=== PATIENT | male | born 1930 | race Caucasian/White ===

== ENCOUNTER 2019-06-13 13:31 | Observation (INO) | payer BC, MEDICARE, OTHER ==
[2019-06-13 14:18] LABS: ABS Basophils 0.1 10^3/ul (0-0.2); ABS Neutrophils 7.3 10^3/ul (1.5-7.7); Eosinophil % 0.4 %; Hematocrit 41 % (42-52); Hemoglobin 13.9 g/dL (14.0-18.0); Mean Corpuscular HGB Conc 34 g/dL (31-36); Mean Corpuscular Hemoglobin 32 pg (27-31); Mean Corpuscular Volume 93 fL (80-94); Mean Platelet Volume 8.5 fL (7.4-10.4); Platelet Count 125 10^3/uL (150-450); Red Blood Count 4.41 10^6 /uL (4.18-5.48); Red Cell Distribution Width 14 % (10-15); White Blood Count 9.4 10^3/uL (3.5-10.8)
[2019-06-13 14:24] LABS: INR 1.03 (0.82-1.09)
[2019-06-13 14:41] LABS: Troponin I 0.01 ng/mL (<0.04)
[2019-06-13 14:42] LABS: Albumin 3.7 g/dL (3.2-5.2); Albumin/Globulin Ratio 1.4 (1-3); Calcium 8.9 mg/dL (8.6-10.3); EGFR African American 67.8 (>60); EGFR Non-African American 56.1 (>60); Globulin 2.7 g/dL (2-4); Potassium 3.8 mmol/L (3.5-5.0); Total Bilirubin 0.8 mg/dL (0.2-1.0); Total Protein 6.4 g/dL (6.4-8.9)
--- NOTE | 2019-06-13 14:46 | ED ---
Syncope/Near Syncope - HPI Summary HPI Summary: Pt is an 88 y/o M presenting to the ED with a chief complaint of syncope. He states he was grocery shopping with his when he felt lightheaded, and he experienced a syncopal episode. His family members report him being pale and clammy, and they also note that EMS reported a couple more near-syncopal episodes. He denies CP or abd pain. Patient reports similar episode when he was admitted to hospital and had workup and was told he was dehydrated. No fevers or chills. Patient unsure if he hit his head but denies headaches. Patient states he feels better now. 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 His keeps track of his medical issues and has documents regardng PMH. Per ROR hx NSTEMI with ST depression in v2-v5. Underwent LHC on 02/01 showing 3VCADpLAD diag and RCA. Underwent successful PCI of proximal RCA with drug eluting stent with Dr. Tye Rose on 02/02. - History Of Current Complaint Chief Complaint: EDSyncope Time Seen by Provider: 06/13/19 13:39 Hx Obtained From: Patient Onset/Duration: Sudden Onset, Lasting Minutes, Resolved Timing: Minutes Context: Witnessed, Loss Of Consciousness Activity At Onset: Exertion - walking in grocery store Associated Head Trauma: No Aggravating Factor(s): Nothing Alleviating Factor(s): Spontaneous Resolution Associated Signs And Symptoms: Lightheadedness - Allergies/Home Medications Allergies/Adverse Reactions: Allergies Allergy/AdvReac Type Severity Reaction Status Date / Time codeine Allergy Unknown Verified 06/13/19 14:11 Reaction Details Penicillins Allergy Unknown Verified 06/13/19 14:11 Reaction Details procaine [From Novocain] Allergy Unknown Verified 06/13/19 14:11 Reaction Details Home Medications: Home Medications Aspirin EC TAB* [Ecotrin EC Low Dose 81 MG*] 81 mg PO DAILY 06/13/19 [History Confirmed 06/13/19] Calcipotriene/Betamethasone [Enstilar 0.005%-0.064% Foam] 60 gm TOPICAL DAILY [History Confirmed 06/13/19] Cholecalciferol TAB* [Vitamin D TAB*] 2,000 units PO DAILY 06/13/19 [History Confirmed 06/13/19] Clopidogrel TAB* [Plavix TAB*] 75 mg PO DAILY 06/13/19 [History Confirmed ] Dimethicone/Colloidal Oatmeal [Aveeno Skin Relief Moistu] 1.3 % TOPICAL DAILY PRN 06/13/19 [History Confirmed 06/13/19] Emollient Combination No.75 [[place] Butter] 1 cre TOPICAL DAILY PRN 06/13/19 [ History Confirmed 06/13/19] Ibuprofen TAB* [Advil TAB*] 400 mg PO BID PRN 06/13/19 [History Confirmed ] Irbesartan/Hctz 300-12.5 1 tab PO DAILY 06/13/19 [History Confirmed 06/13/19] Multivitamins/Minerals TAB* [Theragran/minerals TAB*] 1 tab PO DAILY 06/13/19 [ History Confirmed 06/13/19] Rosuvastatin (NF) [Crestor] 20 mg PO DAILY 06/13/19 [History Confirmed 06/13/19] Triamcinolone 0.1% CREAM(NF) [Kenalog Cream 0.1%(NF)] 1 applic TOPICAL BID 06/13 [History Confirmed 06/13/19] amLODIPine TAB* [Norvasc 5 mg TAB*] 5 mg PO DAILY 06/13/19 [History Confirmed ] PMH/Surg Hx/FS Hx/Imm Hx Endocrine/Hematology History: Reports: Hx Anticoagulant Therapy - plavix Cardiovascular History: Reports: Hx Aneurysm, Hx Myocardial Infarction Sensory History: Reports: Hx Contacts or Glasses Infectious Disease History: No Infectious Disease History: Denies: Traveled Outside the [place] in Last 30 Days - Family History Known Family History: Negative: Renal Disease - Social History Alcohol Use: None Hx Substance Use: No Substance Use Type: Reports: None Hx Tobacco Use: Yes Smoking Status (MU): Former Smoker Review of Systems Positive: Other - pale, clammy Negative: Chest Pain Negative: Abdominal Pain Neurological: Other - lightheadedness Positive: Syncope All Other Systems Reviewed And Are Negative: Yes Physical Exam - Summary Physical Exam Summary: Constitutional: Elderly male no acute distress Skin: Warm, Dry HENT: Normocephalic; Atraumatic Eyes: Conjunctiva normal Neck: Musculoskeletal ROM normal neck. (-) JVD, (-) Stridor Cardio: Rhythm regular, rate normal, Heart sounds normal; Intact distal pulses; Radial pulses are 2+ and symmetric. (-) Murmur. Diminished pulses in bilateral feet (chronic per ROR) Pulmonary/Chest wall: Effort normal. (-) Respiratory distress, (-) Wheezes, (-) Rales Abd: Soft, (-) tenderness, (-) Distension, (-) Guarding, (-) Rebound Musculoskeletal: (-) Edema Lymph: (-) Cervical adenopathy Neuro: Alert, Oriented x3 Psych: Mood and affect Normal Triage Information Reviewed: Yes Vital Signs On Initial Exam: Initial Vitals BP 125/84 06/13/19 13:37 Vital Signs Reviewed: Yes - [place] Coma Scale Best Eye Response: 4 - Spontaneous Best Motor Response: 6 - Obeys Commands Best Verbal Response: 5 - Oriented Coma Scale Total: 15 Diagnostics - Vital Signs Vital Signs Temp Pulse Resp BP Pulse Ox 06/13/19 13:40 98.3 F 66 13 125/84 98 06/13/19 13:37 125/84 - Laboratory Lab Results: Lab Results 06/13/19 06/13/19 06/13/19 Range/Units 14:04 14:04 14:04 WBC 9.4 (3.5-10.8) 10^3/uL RBC 4.41 (4.18-5.48) 10^6 /uL Hgb 13.9 L (14.0-18.0) g/dL Hct 41 L (42-52) % MCV 93 (80-94) fL MCH 32 H (27-31) pg MCHC 34 (31-36) g/dL RDW 14 (10-15) % Plt Count 125 L (150-450) 10^3/uL MPV 8.5 (7.4-10.4) fL Neut % (Auto) 77.3 % Lymph % (Auto) 11.0 % [place] % (Auto) 10.7 % Eos % (Auto) 0.4 % Baso % (Auto) 0.6 % Absolute Neuts (auto) 7.3 (1.5-7.7) 10^3/ul Absolute Lymphs (auto) 1.0 (1.0-4.8) 10^3/ul Absolute Monos (auto) 1.0 H (0-0.8) 10^3/ul Absolute Eos (auto) 0.0 (0-0.6) 10^3/ul Absolute Basos (auto) 0.1 (0-0.2) 10^3/ul Absolute Nucleated RBC 0.0 10^3/ul Nucleated RBC % 0.0 INR (Anticoag Therapy) 1.03 (0.82-1.09) Sodium 140 (135-145) mmol/L Potassium 3.8 (3.5-5.0) mmol/L Chloride 106 (101-111) mmol/L Carbon Dioxide 27 (22-32) mmol/L Anion Gap 7 (2-11) mmol/L BUN 33 H (6-24) mg/dL Creatinine 1.22 H (0.67-1.17) mg/dL Est GFR ( Amer) 67.8 (>60) Est GFR (Non-Af Amer) 56.1 (>60) BUN/Creatinine Ratio 27.0 H (8-20) Glucose 99 (70-100) mg/dL Calcium 8.9 (8.6-10.3) mg/dL Magnesium 2.0 (1.9-2.7) mg/dL Total Bilirubin 0.80 (0.2-1.0) mg/dL AST 22 (13-39) U/L ALT 13 (7-52) U/L Alkaline Phosphatase 118 H (34-104) U/L Troponin I 0.01 (<0.04) ng/mL Total Protein 6.4 (6.4-8.9) g/dL Albumin 3.7 (3.2-5.2) g/dL Globulin 2.7 (2-4) g/dL Albumin/Globulin Ratio 1.4 (1-3) Result Diagrams: 06/13/19 14:04 06/13/19 14:04 Lab Statement: Any lab studies that have been ordered have been reviewed, and results considered in the medical decision making process. - Radiology CXR Radiology Interpretation Completed By: Radiologist Summary of Radiographic Findings: No active cardiopulmonary disease is noted. ED physician has reviewed this report. - CT Brain ct CT Interpretation Completed By: Radiologist Summary of CT Findings: 1. NO EVIDENCE FOR ACUTE INTRACRANIAL ABNORMALITY. 2. ATROPHY AND FINDINGS CONSISTENT WITH CHRONIC SMALL VESSEL ISCHEMIC CHANGES. ED physician has reviewed this report. - EKG 1357 Cardiac Rate: NL - 64bpm EKG Rhythm: Sinus Rhythm ST Segment: Non-Specific Ectopy: None Summary of EKG Findings: An EKG at 1357 shows NSR at 64bpm with mild ST depression in v4, v5, and v6, and nml axis, nml intervals. No STEMI. No acute changes. No prior to compare. Re-Evaluation - Re-Evaluation First Eval Comment: head CT neg, labs notable for Cr 1.2, given IVF. Plan for obs admit to medicine Course/Dx Course Of Treatment: 80-year-old male with a complex medical history including aortic aneurysm status post TEVAR, hypertension who presents with multiple syncopal episodes. Syncope. DDx: Seizure: no witnessed seizure activity, incontinence or h/o seizures to suggest seizure today. Hypoxia and hypoglycemia less likely in this patient with normal sats and BG. Cardiac issue : electrical (dysarrhythmias, brugada, WPW, long QT). Patient has extensive medical history. Check EKG and troponin. Reportedly has multiple echoes at outside hospital however unable to access. Mechanical: outflow obstruction like HOCM or aortic stenosis, tamponade-less likely as no murmur, non-exertional , no hypertrophy on EKG. Vessels: Patient has known history of a previous aortic aneurysm, status post repair. Abdomen is soft no pulsatile masses. Chest x-ray does not show any widening of mediastinum. Vital signs are stable. Volume issue: Patients thinks he is dehydrated so will provide IV fluids , no obvious fluid loss by history. Neuro: No NIÑO, no personal or family h/o cerebral aneurysm, nml neuro exam, however patient is on Plavix so we will check head CT. Also: vasovagal, drugs/meds, autonomic insufficiency - Diagnoses Provider Diagnoses: Syncope Discharge - Sign-Out/Discharge Documenting (check all that apply): Patient Departure - Discharge Plan Condition: Stable Disposition: ADMITTED TO [facility] Referrals: No Primary Care Phys,NOPCP [Primary Care Provider] - - Billing Disposition and Condition Condition: STABLE Disposition: Admitted to [facility] - Attestation Statements Document Initiated by Scribe: Yes Documenting Scribe: Amanda Chau Provider For Whom Scribe is Documenting (Include Credential): Mana Hennessy MD. Scribe Attestation: Amanda Arguello, scribed for Mana Hennessy MD. on 06/13/19 at 1645. Scribe Documentation Reviewed: Yes Provider Attestation: The documentation as recorded by the scribe, Amanda Chau accurately reflects the service I personally performed and the decisions made by me, Mana Hennessy MD. Status of Scribe Document: Viewed Consult Consult: [id number] - I spoke with Dr. Corona who accepts the pt for admission to [facility].
[2019-06-13 15:42] LABS: Urine Appearance Clear; Urine Bilirubin Negative (Negative); Urine Blood Negative (Negative); Urine Color Yellow; Urine Glucose Negative (Negative); Urine Ketones Negative (Negative); Urine Nitrite Negative (Negative); Urine Protein Negative (Negative); Urine Specific Gravity 1.015 (1.010-1.030); Urine Urobilinogen Negative (Negative)
[2019-06-13] MEDS ORDERED: Iodixanol* (CONTRAST) 320 MG/ML 100 ML SDV IV ONE (19:33)
[2019-06-13] MEDS ORDERED: Acetaminophen TAB* 325 MG PO PRN (21:53)
[2019-06-13] MEDS ORDERED: hydrALAZINE IV* 20 MG/ML VIAL IV SLOW PU PRN (21:57)
[2019-06-13] MEDS ORDERED: NS 0.9% 1000 ML** 1,000 ML IV SCH (22:00)
--- NOTE | 2019-06-14 04:53 | HP ---
HISTORY AND PHYSICAL: DATE OF ADMISSION: 06/13/19 PROVIDER: Rowena Luna NP PRIMARY CARE PROVIDER: [place]. ATTENDING PHYSICIAN WHILE IN THE HOSPITAL: Dr. Skylar Fields * (dictated by Rowena Luna NP). CHIEF COMPLAINT: Syncope. HISTORY OF PRESENT ILLNESS: Mr. La is an 88-year-old gentleman with a past medical history significant for prostate cancer, hypertension, Peyronie's disease, history of non-STEMI, history of aortic aneurysm with repair, left carotid to left subclavian bypass surgery, who reports that he is here visiting from [place] and arrived last Tuesday. The patient reports at approximately 11 a.m. this morning he was shopping with his in a dress shop; he felt woozy and then somebody in the dress shop went to get him a chair, but before they could return, the patient had collapsed to the floor. EMS was called and the patient was brought to the emergency room for further evaluation. The patient reports that today he was climbing up and down stairs and he did not have any symptoms. He denied any chest pain or shortness of breath. Only reports feeling woozy, lightheaded. Reports he remembers feeling woozy and falling to the floor but did not recall some of the events after the fall. He reports that he was feeling in his normal state of health. He again experienced no symptoms during his drive or has had any recent illnesses. Due to syncopal episode, we are asked to see and evaluate him for admission. PAST MEDICAL HISTORY: Significant for: 1. Hypertension. 2. Peyronie's disease. 3. History of non-STEMI. 4. History of prostate cancer, status post prostatectomy. 5. History of aortic aneurysm, status post repair. 6. History of left carotid to left subclavian bypass surgery. PAST SURGICAL HISTORY: 1. Tonsillectomy. 2. Prostatectomy. 3. TEVAR bypass graft of the aorta. 4. Cardiac stent. 5. Left carotid to left subclavian bypass. HOME MEDICATIONS: Include: 1. Irbesartan/hydrochlorothiazide 300/12.5. 2. Clopidogrel 75 mg p.o. daily. 3. Rosuvastatin 20 mg p.o. daily. 4. Multivitamin 1 p.o. daily. 5. Vitamin D 2000 units p.o. daily. 6. Amlodipine 5 mg p.o. daily. 7. Aspirin 81 mg p.o. daily. FAMILY HISTORY: Mother of old age at the age of 103. Father at 87, again of old age. No diabetes or cancer within the family. SOCIAL HISTORY: The patient is a former smoker. He quit smoking 50 years ago. He denies any alcohol or illicit drug use. He is . He lives with his . Surrogate decision maker in the event he is unable to make his own decisions is his . He does walk with a cane at times. He is a full code. REVIEW OF SYSTEMS: He denies any fever, unintended weight loss, chest pain or edema. Denies any cough, hemoptysis, or shortness of breath. No nausea, vomiting, diarrhea, or abdominal pain, hematuria, or dysuria, focal weakness or sensory loss. Denies any visual complaints, dysphagia, arthralgias, myalgias, rashes, lesions, or open sores, psychosis or anxiety. The patient did report that he had an episode of feeling lightheaded and syncope. PHYSICAL EXAMINATION GENERAL: At this time, Mr. La is alert and oriented, resting on the stretcher in the emergency room. He is in no acute distress. VITAL SIGNS: Blood pressure 175/83, heart rate 65, respirations 18, O2 saturation 94%, temperature was 98.3. HEENT: Head is atraumatic, normocephalic. Eyes: EOMs are intact. Sclerae anicteric and not pale. Oral mucosa appeared to be moist. NECK: Supple. There is no C-spine tenderness. He has full range of motion. LUNGS: Clear to auscultation bilaterally. No wheezes, rales, or rhonchi. CARDIAC: S1, S2. Regular rate and rhythm. No murmurs, rubs, or gallops. ABDOMEN: Soft and nontender. Bowel sounds are present x4. BACK: He does have a large hematoma noted to his right posterior lower ribs with a small abrasion. He has no CVA tenderness. No crepitus is noted. MUSCULOSKELETAL: He is able to move all 4 extremities. There is no clubbing or cyanosis. Pedal pulses are +2 bilaterally. SKIN: He does have a hematoma noted to the right posterior ribs with a small abrasion. NEUROLOGIC: He is awake, alert, oriented x3. Speech is clear. Thought process intact. Cranial nerves II through XII are grossly intact. He has no pronator drift, no leg drift. Hand product safety administrator are equal. Tongue is midline. Smile is equal. There is no facial asymmetry. Push-pull is intact. Vtdk-gn-fppt is intact. Rncymc-cq-iymx is intact. LABORATORY DATA AND DIAGNOSTIC STUDIES: WBCs are 9.4, RBC is 4.41, hemoglobin 13.9, hematocrit is 41, platelet count was 125, INR was 1.03. Sodium 140, potassium 3.8, chloride 106, carbon dioxide is 27, anion gap is 7, BUN was 33, creatinine 1.22, glucose was 99, calcium 8.9, magnesium 2.0. ASTs were 22, ALTs were 13, alkaline phosphatase was 118. Urine was within normal limits. He had a CT of the brain, radiologist's impression: No evidence of acute intracranial abnormality, atrophy and findings consistent with chronic small vessel ischemic changes. He had an electrocardiogram, which showed sinus rhythm at a rate of 64. He had a CT of the abdomen and pelvis, radiologist's impression: Aortic arch endograft repair with no endoleak or dissection widely patent associated brachiocephalic stent and intracarotid bypass graft. No pulmonary emboli. Mild emphysema. CT of the abdomen and pelvis, infrarenal aortic aneurysm. No rupture or dissection, severely stenotic right superficial femoral artery, moderately stenotic left superficial femoral artery suggested infectious colitis cecum to hepatic flexure. CT of the abdomen and pelvis showed possibility of infectious colitis. The patient has no abdominal pain or diarrhea. This does not appear to be an acute issue. I will hold off on antibiotics at this time. If the patient does develop diarrhea or abdominal pain, he will consider initiation of antibiotics. The patient is also afebrile. ASSESSMENT AND PLAN: Mr. La is an 88-year-old male with a past medical history significant for hypertension, history of prostate cancer, and history of non-ST elevation myocardial infarction in January of 2018, history of aortic aneurysm repair, who presented to the emergency room after a syncopal episode. He will be admitted under observation for: 1. Syncope: I will monitor him on telemetry. We will get orthostatic vital signs. I will get a transthoracic echocardiogram in the a.m. It is unclear of his cause of syncope at this time, suspect this could be related to dehydration. 2. Hypertension. The patient was hypertensive in the emergency room. He does take irbesartan/hydrochlorothiazide and amlodipine. I will continue those medications and add hydralazine 5 mg IV q.6 hours as needed for systolic blood pressure greater than greater than 180. 3. High cholesterol. The patient will continue on rosuvastatin as previously prescribed. 4. History of coronary artery disease. The patient will continue clopidogrel 75 mg p.o. daily and rosuvastatin 20 mg p.o. daily, as well as aspirin 81 mg p.o. daily. 5. History of aortic aneurysm and left carotid to left subclavian bypass. He will continue on Plavix and aspirin as previously prescribed. 6. FEN: The patient can have a heart-healthy diet. 8. Code status: He is a full code. 9. DVT prophylaxis: I will place him on SCDs as the patient does have a large hematoma in order to his right posterior lower ribs. TIME SPENT: Time spent on this admission was approximately 60 minutes, greater than half that time was spent at the bedside reviewing the events leading thus far to this hospitalization, performing physical exam, reviewing my plan of care. I have discussed this with my attending, Dr. Skylar Fields, she is in agreement with my plan. ROWENA LUNA, RAY [id number]/[facility] #: [id number] JASPAL
[2019-06-14 07:19] LABS: ABS Lymphocytes 1.4 10^3/ul (1.0-4.8); ABS Neutrophils 4.5 10^3/ul (1.5-7.7); Eosinophil % 0.4 %; Hematocrit 40 % (42-52); Hemoglobin 13.8 g/dL (14.0-18.0); Lymphocyte % 19.5 %; Mean Corpuscular HGB Conc 35 g/dL (31-36); Mean Corpuscular Hemoglobin 32 pg (27-31); Mean Corpuscular Volume 93 fL (80-94); Mean Platelet Volume 8.9 fL (7.4-10.4); Nucleated Red Blood Cells % 0.1; Platelet Count 120 10^3/uL (150-450); Red Cell Distribution Width 14 % (10-15)
[2019-06-14 07:37] LABS: BUN/Creatinine Ratio 23.4 (8-20); Calcium 8.4 mg/dL (8.6-10.3); EGFR African American 91.6 (>60); EGFR Non-African American 75.7 (>60); Potassium 3.6 mmol/L (3.5-5.0)
[2019-06-14 07:47] LABS: INR 1.07 (0.82-1.09)
[2019-06-14] MEDS ORDERED: Atorvastatin* 40 MG TAB PO SCH (09:00)
[2019-06-14] MEDS ORDERED: Losartan TAB* 25 MG PO SCH (09:00)
[2019-06-14] MEDS ORDERED: Cholecalciferol TAB* 1000 UNITS PO SCH (09:00)
[2019-06-14] MEDS ORDERED: amLODIPine TAB* 5 MG PO SCH (09:00)
[2019-06-14] MEDS ORDERED: Aspirin EC TAB* 81 MG TAB.EC PO SCH (09:00)
[2019-06-14] MEDS ORDERED: Clopidogrel TAB* 75 MG PO SCH (09:00)
[2019-06-14] MEDS ORDERED: Hydrochlorothiazide TAB* 25 MG PO SCH (09:00)
[2019-06-14] MEDS ORDERED: Multivitamins/Minerals TAB PO SCH (09:00)
--- NOTE | 2019-06-14 11:56 | ECHO ---
*[facility]* [place] [address] Fax #: [phone] Transthoracic Echocardiogram Patient: Issa La : 1930 Study Date: 06/14/2019 Age: 88 Gender: M HR: 88 bpm Height: 70 in /177.8 cm BSA: 1.96 m^2 Weight: 169.6 lb /77.1 kg BMI: 24.4 kg/m^2 *Payable Processor: Jayne Viera [facility] *Referring Physician: * Rowena Luna *Reading Physician: * Julian Morataya MD Indications: Syncope. History: PMH: Myocardial infarction (NSTEMI). Risk factors: Hypertension. Aortic anuerysm. Conclusions Summary: - Left ventricle: The cavity size is normal. Wall thickness is moderately increased. Systolic function is normal. The estimated ejection fraction is 60-65%. Doppler parameters are consistent with abnormal left ventricular relaxation (grade 1 diastolic dysfunction). - Mitral valve: The findings are consistent with trivial stenosis. The valve area is 2.6 cm^2. - Aortic valve: The findings are consistent with moderate stenosis. By 2d and continuity. The peak systolic velocity is 2.6 m/sec. The mean systolic gradient is 16.0 mm Hg. The valve area by the velocity-time integral method is 1.50 cm^2. The valve area by the peak velocity method is 1.50 cm^2. - Ascending aorta: The ascending aorta is mildly dilated. - Aortic arch: The aortic arch is not well visualized and appears mild to moderately dilated. Study data: Transthoracic echocardiogram. Procedure: Transthoracic echocardiography was performed. Image quality was good. Complete 2D, spectral Doppler, and color flow Doppler. Location: Bedside. Patient status: Inpatient. Patient room number: 441 01. No prior study is available for comparison. Rhythm: Normal sinus rhythm. Findings Left ventricle: The cavity size is normal. Wall thickness is moderately increased. Systolic function is normal. The estimated ejection fraction is 60-65%. Wall motion is normal; there are no regional wall motion abnormalities. Doppler parameters are consistent with abnormal left ventricular relaxation (grade 1 diastolic dysfunction). Right ventricle: The cavity size is normal. Wall thickness is mildly increased. Systolic function is normal. Left atrium: The atrium is normal in size. Right atrium: The atrium is normal in size. Mitral valve: Is mildly calcified. The leaflets are mildly thickened. The findings are consistent with trivial stenosis. There is mild regurgitation. Aortic valve: The annulus is mildly calcified. The valve is probably trileaflet. The leaflets are moderately thickened. Valve mobility is restricted. 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 By 2d and continuity. There is no significant regurgitation. Tricuspid valve: The leaflets are normal thickness. There is no evidence of stenosis. There is trace regurgitation. Pulmonic valve: Not well visualized. There is mild regurgitation. Aorta: Aortic root: The aortic root is appears normal. Ascending aorta: The ascending aorta is mildly dilated. Aortic arch: The aortic arch is not well visualized and appears mild to moderately dilated. Pericardium: There is no significant pericardial effusion. Pulmonary arteries: Not well visualized. Systolic pressure can not be accurately estimated. Systemic veins: Inferior vena cava: The vessel is normal in size. There is (>= 50%) respiratory change in the IVC dimension. Measurements Left ventricle Value Ref Aortic valve continued Value Ref NADIA, LAX 4.3 cm 4.2 - 5.8 VTI, S 64.0 cm ---- ESD, LAX 3.3 cm 2.5 - 4.0 Mean grad, S 16.0 mm Hg ---- FS, LAX (L) 23 % 25 - 43 Peak grad, S 27.0 mm Hg ---- PW, ED, LAX (H) 1.5 cm 0.6 - 1.0 LVOT/AV, VTI ratio 0.38 ---- E', lat [place], TDI (L) 5.0 cm/sec >=10.0 GORDO, VTI 1.50 cm^2 ---- E/e', lat [place], 14 GORDO, Vmax 1.50 cm^2 - --- TDI LVOT/AV, Vmean ratio 0.4 ---- E', med [place], TDI (L) 5.0 cm/sec >=7.0 E/e', med [place], 14 Mitral valve Value R ef TDI Peak E 0.7 m/sec ---- E', avg, TDI 5.0 cm/sec Peak A 1.3 m/sec - --- E/e', avg, TDI 14 <=14 VTI leaflet coapt 37.5 cm ---- Decel time 291 ms ---- LVOT Value Ref PHT 141 ms ---- Diam, S 2.29 cm Mean grad, D 1.8 mm Hg ---- Area 4.1 cm^2 Peak E/A ratio 0.54 ---- Peak maria r, S 0.92 m/sec MVA, PHT 1.6 cm^2 ---- VTI, S 24.0 cm Peak grad, S 3 mm Hg Pulmonic valve Value Ref Mean grad, S 2 mm Hg Peak v, S 0.75 m/sec ---- Peak grad, S 2.3 mm Hg ---- Ventricular septum Value Ref IVS, ED (H) 1.7 cm 0.6 - 1.0 Aortic root Value Ref Root diam 3.1 cm <4. 1 Right ventricle Value Ref NADIA, LAX 2.5 cm Ascending aorta Value Ref NADIA major ax, A4C (L) 3.4 cm 5.9 - 8.3 AAo AP diam, S 3.6 cm ---- Left atrium Value Ref Aortic arch Value Ref AP dim, ES 3.70 cm 3.00 - Arch diam 4.2 cm ---- 4.00 ML dim, A4C 4.3 cm Inferior vena cava Value Ref SI dim, A4C 4.9 cm Diam 1.0 cm ---- Vol/bsa, ES, 2-p 31 ml/m^2 16 - 34 Pulmonary veins Value Ref Right atrium Value Ref Peak v, S 0.66 m/sec ---- SI dim, ES 4.4 cm 3.4 - 5.3 Peak v, D 0.36 m/sec ---- ML dim, ES, A4C 4.4 cm 2.6 - 4.4 Peak S/D ratio 1.81 ---- Estimated RAP 8 mm Hg A rev duration 145 ms ---- Aortic valve Value Ref Leaflet sep 1.7 cm Peak v, S 2.6 m/sec Legend: (L) and (H) [place] values outside specified reference range. Prepared and electronically signed by Julian Morataya MD 06/14/2019 11:56
[2019-06-14 15:30] VITALS: BP 135/62
--- NOTE | 2019-06-14 17:58 | DS ---
Resident Discharge Summary Discharge Summary: Date of Admission: 06/13/19 Date of Discharge: 06/14/2019 Admitting MD: Skylar Fields MD Attending MD: Kera Hernandez MD Primary Care Physician: Patient Does Not Have PCP Home Medications Medication Instructions Recorded Confirmed Type Aspirin EC TAB* [Ecotrin EC Low 81 mg PO DAILY 06/13/19 06/13/19 History Dose 81 MG*] Calcipotriene/Betamethasone 60 gm TOPICAL DAILY 06/13/19 06/13/19 History [Enstilar 0.005%-0.064% Foam] Cholecalciferol TAB* [Vitamin D 2,000 units PO DAILY 06/13/19 06/13/19 History TAB*] Clopidogrel TAB* [Plavix TAB*] 75 mg PO DAILY 06/13/19 06/13/19 History Dimethicone/Colloidal Oatmeal 1.3 % TOPICAL DAILY PRN 06/13/19 06/13/19 History [Aveeno Moisturizing Lotion] Emollient Combination No.75 [[place] 1 cre TOPICAL DAILY PRN 06/13/19 06/13/19 History Butter] Ibuprofen TAB* [Advil TAB*] 400 mg PO BID PRN 06/13/19 06/13/19 History Irbesartan/Hctz 300-12.5 1 tab PO DAILY 06/13/19 06/13/19 History Multivitamins/Minerals TAB* 1 tab PO DAILY 06/13/19 06/13/19 History [Theragran/minerals TAB*] Rosuvastatin (NF) [Crestor (NF)] 20 mg PO DAILY 06/13/19 06/13/19 History Triamcinolone 0.1% CREAM(NF) 1 applic TOPICAL BID 06/13/19 06/13/19 History [Kenalog Cream 0.1%(NF)] amLODIPine TAB* [Norvasc 5 mg TAB*] 5 mg PO DAILY 06/13/19 06/13/19 History Disposition: Home Condition: Improved Primary Diagnosis: 1. Vasovagal Syncope- likely from heat exposure and prolonged standing. Secondary Diagnosis: 1. Hypertension Diagnostic Imagin. Brain CT: No evidence of intracranial abnormality. Chronic small veseel changes seen. 2. Chest/Abdomen/Pelvis CTA: Infrarenal aortic saccular aneurysm. No rupture or dissection. Severely stenotic right superficial femoral artery at the origin. Moderately stenotic left superficial femoral artery. Suggested infectious colitis cecum to hepatic flexure. 3. Transthoracic Echo: Normal Ejection Fraction of 60-65%. Abnormal left ventricular relaxation( Grade 1 diatolic dysfunction). Trivial MS, Moderate . 4. EKG: Borderline QTc prolongation. Pertinent Laboratory Results: On discharge: Hb: 13.8 Creatinine: 0.94 TSH: 1.42 URINE: CLEAR Troponin was negative. Hospital Course: 88 y/o M with PMH of NSTEMI(s/p stent), Aortic aneurysm(repaired), Left carotid and subclavian bypass surgery, HTN presented with complain of Syncope which lasted for minutes. He had a feeling of light headedness and "whoozy" before the episode. He was in a store during the episode with his . His noticed him being pale and clammy but didnot notice seizure, incontinence. He was not confused after he regained consciousness. No history of Chest pain, SOB or abdominal pain. His gives history of him passing out before and admitted to hospital and told he was dehydrated. On examination he was warm and dry; alert and oriented; with normal heart sounds. In hospital he was given fluids. EKG, Blood work, Echo and Imaging didnot show significant findings.Troponin was not elevated. He had no any symptom during the hospital stay and was ambulating in the hallways. Follow Up Instructions: Activity as tolerated. Heart healthy diet, low in processed food and low salt. Measure your blood pressure and bring a log to your PCP. If you feel light headed, woozy, or weak, as though you will pass out again, sit down immediately or if you are driving then car repairer pullman immediately. Stay hydrated in warm weather. Avoid situations with excessive heat. In case of an emergency or after clinic hours, please go to your nearest Emergency Department. You may also call the [facility] splicer operator at .
== END 2019-06-14 17:50 | disposition home or self-care (01) ==
LOC: ED 13:31 → MEDTELE 21:53
PROVIDERS: ADMIT Internal Medicine; ATTEND Internal Medicine
DX: R55 Syncope and collapse (principal); I10 Essential (primary) hypertension; I25.2 Old myocardial infarction; I71.9 Aortic aneurysm of unspecified site, without rupture; Z86.79 Personal history of other diseases of the circulatory system; Z87.891 Personal history of nicotine dependence; Z79.82 Long term (current) use of aspirin; Z88.0 Allergy status to penicillin; Z79.899 Other long term (current) drug therapy; Z79.01 Long term (current) use of anticoagulants; R94.31 Abnormal electrocardiogram [ECG] [EKG]; Z85.46 Personal history of malignant neoplasm of prostate; Z95.5 Presence of coronary angioplasty implant and graft; Z95.1 Presence of aortocoronary bypass graft
CPT/HCPCS: 36415; 70450; 71045; 71275; 74174; 80048; 80053; 81003; 83735; 84443; 84484; 85025; 85610; 93005; 93306; 96360; 96361; 99285; A9270-GY; G0378; Q9967